=== PATIENT | female | born 1940 | race Caucasian/White ===

== ENCOUNTER 2017-09-15 20:41 | Emergency (ER) | payer MEDICARE ==
[2017-09-15 21:41] LABS: BASO % 0.2 % (0-6); EOS % 2.5 % (0-6); GRAN % 46.7 % (47-80); HEMATOCRIT 39.6 % (35.0-47.0); HEMOGLOBIN 12.9 gm/dl (11.6-16.0); LYMPH % 39.5 % (16-45); MEAN CELL VOLUME 91.7 fl (81-97); MEAN CORPUSCULAR HEMOGLOBIN 29.9 pg (27-33); MEAN CORPUSCULAR HGB CONC 32.6 g/dl (32-36); MEAN PLATELET VOLUME 9.4 fl (7.4-10.4); MONO % 11.1 % (0-9); PLATELET COUNT 207 K/uL (130-400); RED BLOOD COUNT 4.32 M/uL (3.80-5.40); RED CELL DISTRIBUTION WIDTH 13.3 % (11.5-14.5); WHITE BLOOD COUNT W/O DIFF 5.7 K/uL (4.2-12.2)
[2017-09-15 21:55] LABS: BILIRUBIN,TOTAL 0.2 mg/dL (0.2-1.0); CREATININE 1.4 mg/dL (0.5-0.9)
[2017-09-15 21:56] LABS: TOTAL PROTEIN 6.5 g/dL (6.6-8.7)
[2017-09-15 22:01] LABS: ALBUMIN 4.3 g/dL (4.0-5.0)
[2017-09-15] MEDS: ACETAMINOPHEN 500 MG TABLET PO ONE ×2 (22:37→22:59)
--- NOTE | 2017-09-15 23:16 | Emergency Department Record ---
History of Present Illness - General Chief Complaint: Hypertension Stated Complaint: HIGH BLOOD PRESSURE/HEADACHE Time Seen by Provider: 09/15/17 21:04 Source: Patient Mode of Arrival: Ambulatory Limitations: No limitations - History of Present Illness Initial Comments: pt came in because she has high blood pressure of 135 at home [which she says is high enough to cause her symptoms]] she also has a mild carney and tingling of both sides of her face. Complaint: Other Onset/Timin -: Days(s) Timing: Gradual onset Description: Other Improves With: Nothing Worsens With: Nothing Associated Symptoms: Other - Jesse Coma Scale Eye Response: (4) Open spontaneously Motor Response: (6) Obeys commands Verbal Response: (5) Oriented [place] Total: 15 - Related Data Home Medications Medication Instructions Recorded Confirmed Last Taken Amlodipine Besylate [Norvasc] 5 mg PO DAILY 09/15/17 09/15/17 Unknown Allergies Allergy/AdvReac Type Severity Reaction Status Date / Time Sulfa (Sulfonamide AdvReac HEADACHE Verified 09/15/17 20:50 Antibiotics) muscle relaxers AdvReac HEADACHE Uncoded 09/15/17 20:50 Travel Screening - Travel/Exposure Within Last 30 Days Have you traveled within the last 30 days?: No Review of Systems Reviewed: No additional complaints except as noted below Constitutional: Reports: As per HPI. Denies: Chills, Fever, Malaise, Night sweats, Weakness, Weight change Eyes: Reports: As per HPI. Denies: Eye discharge, Eye pain, Photophobia, Vision change ENT: Reports: As per HPI. Denies: Congestion, Dental pain, Ear pain, Epistaxis , Hearing loss, Throat pain Respiratory: Reports: As per HPI. Denies: Cough, Dyspnea, Hemoptysis, Stridor, Wheezes Cardiovascular: Reports: As per HPI. Denies: Arrhythmia, Chest pain, Dyspnea on exertion, Edema, Murmurs, Orthopnea, Palpitations, Paroxysmal nocturnal dyspnea, Rheumatic Fever, Syncope Endocrine: Reports: As per HPI. Denies: Fatigue, Heat or cold intolerance, Polydipsia, Polyuria Gastrointestinal: Reports: As per HPI. Denies: Abdominal pain, Constipation, Diarrhea, Hematemesis, Hematochezia, Melena, Nausea, Vomiting Genitourinary: Reports: As per HPI. Denies: Abnormal menses, Discharge, Dyspareunia, Dysuria, Frequency, Hematuria, Incontinence, Retention, Urgency Musculoskeletal: Reports: As per HPI. Denies: Arthralgia, Back pain, Gout, Joint swelling, Myalgia, Neck pain Skin: Reports: As per HPI. Denies: Bruising, Change in color, Change in hair/ nails, Lesions, Pruritus, Rash Neurological: Reports: As per HPI. Denies: Abnormal gait, Confusion, Headache, Numbness, Paresthesias, Seizure, Tingling, Tremors, Vertigo, Weakness Psychiatric: Reports: As per HPI. Denies: Anxiety, Auditory hallucinations, Depression, Homicidal thoughts, Suicidal thoughts, Visual hallucinations Hematological/Lymphatic: Reports: As per HPI. Denies: Anemia, Blood Clots, Easy bleeding, Easy bruising, Swollen glands Past Medical History - SOCIAL HISTORY Smoking Status: Never smoker Alcohol Use: None Drug Use: None - RESPIRATORY Hx Respiratory Disorders: No - CARDIOVASCULAR Hx Cardio Disorders: Yes Hx Chest Pain: Yes (hx of angina) Hx Hypertension: Yes - NEURO Hx Neuro Disorders: Yes Hx Headaches: Yes (hx of migraines) - GI Hx GI Disorders: No - Hx Genitourinary Disorders: No - ENDOCRINE Hx Endocrine Disorders: Yes Hx Thyroid Disease: Yes (hypothyroid) - MUSCULOSKELETAL Hx Musculoskeletal Disorders: No - PSYCH Hx Psych Problems: No - HEMATOLOGY/ONCOLOGY Hx Cancer: Yes (endometrial) Hx Chemotherapy: No Hx Radiation Therapy: No Family Medical History Any Significant Family History?: Yes Hx Heart Disease: Father, Mother, Grandparents Physical Exam - General General Appearance: Alert, Oriented x3, Cooperative, No acute distress - Head Head exam: Normal inspection - Eye Eye exam: Normal appearance, PERRL, EOMI Pupils: Normal accommodation - ENT ENT exam: Normal exam, Mucous membranes moist, Normal external ear exam, Normal orophraynx Ear exam: Normal external inspection. negative: External canal tenderness Nasal Exam: Normal inspection. negative: Discharge, Sinus tenderness Mouth exam: Normal external inspection, Tongue normal Teeth exam: Normal inspection. negative: Dental caries Throat exam: Normal inspection. negative: Tonsillar erythema, Tonsillar exudate - Neck Neck exam: Normal inspection, Full ROM. negative: Tenderness - Respiratory Respiratory exam: Normal lung sounds bilaterally. negative: Respiratory distress - Cardiovascular Cardiovascular Exam: Regular rate, Normal rhythm, Normal heart sounds - GI/Abdominal GI/Abdominal exam: Soft, Normal bowel sounds. negative: Tenderness - Rectal Rectal exam: Deferred - exam: Deferred - Extremities Extremities exam: Normal inspection, Full ROM, Normal capillary refill. negative: Tenderness - Back Back exam: Reports: Normal inspection, Full ROM. Denies: Muscle spasm, Rash noted, Tenderness - Neurological Neurological exam: Alert, CN II-XII intact, Normal gait, Oriented X3, Other ( subjective tingling of face) - Psychiatric Psychiatric exam: Normal affect, Normal mood - Skin Skin exam: Dry, Intact, Normal color, Warm Course Vital Signs 09/15/17 09/15/17 09/15/17 20:46 21:45 22:31 Temperature 97.4 F L 97.8 F Pulse Rate 83 Pulse Rate [ 79 75 Pulse Ox Probe] Respiratory 18 18 18 Rate Blood Pressure 179/86 Blood Pressure 136/69 125/67 [Left Arm] Pulse Ox 97 97 97 Medical Decision Making - Lab Data Result diagrams: 09/15/17 21:35 09/15/17 21:35 Lab Results 09/15/17 09/15/17 Range/Units 21:35 21:35 WBC 5.7 (4.2-12.2) K/uL RBC 4.32 (3.80-5.40) M/uL Hgb 12.9 (11.6-16.0) gm/dl Hct 39.6 (35.0-47.0) % MCV 91.7 (81-97) fl MCH 29.9 (27-33) pg MCHC 32.6 (32-36) g/dl RDW 13.3 (11.5-14.5) % Plt Count 207 (130-400) K/uL MPV 9.4 (7.4-10.4) fl Gran % 46.7 L (47-80) % Lymphocytes % 39.5 (16-45) % Monocytes % 11.1 H (0-9) % Eosinophils % 2.5 (0-6) % Basophils % 0.2 (0-6) % Sodium 141 (136-145) mmol/L Potassium 4.2 (3.4-4.5) mmol/L Chloride 104 (98-107) mmol/L Carbon Dioxide 25.0 (22-29) mmol/L Anion Gap 12.0 (7-16) BUN 26 H (8-23) mg/dL Creatinine 1.4 H (0.5-0.9) mg/dL Estimated GFR 39 mL/min Random Glucose 107 (74-109) mg/dL Calcium 9.3 (8.8-10.2) mg/dL Total Bilirubin 0.20 (0.2-1.0) mg/dL AST 17 (10.0-35.0) U/L ALT 28 (<33) U/L Alkaline Phosphatase 75 (35-104) U/L Total Protein 6.5 L (6.6-8.7) g/dL Albumin 4.3 (4.0-5.0) g/dL Globulin 2.2 (1.4-4.8) gm/dL Albumin/Globulin Ratio 2.0 H (1.1-1.8) Disposition Disposition: Discharge Clinical Impression: Renal insufficiency Hypertension Qualifiers: Hypertension type: essential hypertension Qualified Code(s): I10 - Essential ( primary) hypertension Disposition: Home, Self-Care Condition: (1) Good Instructions: Hypertension (ED) Additional Instructions: follow up with family doctor. return sooner if worse. push fluids. rest. have labs repeated in 2 wks Quality - Quality Measures Quality Measures: N/A - Blood Pressure Screening Does Patient Have Any of the Following: No Blood Pressure Classification: Pre-Hypertensive BP Reading Systolic Measurement: 179 Diastolic Measurement: 86 Screening for High Blood Pressure: < Pre-Hypertensive BP, F/U Documented > [ G8950] Pre-Hypertensive Follow-up Interventions: Follow-up with rescreen every year.
--- NOTE | 2017-09-16 00:02 | CT SCAN REPORT ---
EXAM: CT SCAN HEAD WO CONTRAST HISTORY: HIGH BLOOD PRESSURE, HEADACHE. TINGLING IN THE FACE. TECHNIQUE: Noncontrast head CT. COMPARISON: None. FINDINGS: The ventricles and subarachnoid spaces are unremarkable. There is no mass or mass effect. No intra or extraaxial hemorrhage. No CT evidence for large acute territorial infarct. No fracture or acute osseous abnormality. The visualized sinuses are clear. IMPRESSION: UNREMARKABLE HEAD CT WITH NO ACUTE INTRACRANIAL PROCESS IDENTIFIED. JOB NUMBER: [id number] MTDD
== END 2017-09-15 23:31 | disposition home or self-care (01) ==
LOC: ER 20:41
DX: I12.9 Hypertensive chronic kidney disease with stage 1 through stage 4 chronic kidney disease, or unspecified chronic kidney disease (principal); N18.9 Chronic kidney disease, unspecified; R51 Headache; R20.2 Paresthesia of skin
CPT/HCPCS: 70450; 80053; 85025; 99284

== ENCOUNTER 2018-09-07 13:50 | Emergency (ER) | payer MEDICARE ==
--- NOTE | 2018-09-07 14:34 | Emergency Department Record ---
History of Present Illness - General Chief Complaint: Hypertension Stated Complaint: BP HIGH/ FACE PAIN Time Seen by Provider: 09/07/18 14:27 Source: Patient, Family Mode of Arrival: Ambulatory Limitations: No limitations - History of Present Illness Initial Comments: 78 yo female presents with a concern about elevated blood pressure today. She noted at home it was higher than her normal. She had a vague tingling feeling of the face. No chest pain, weakness, vision changes, syncope, back or abdominal pain. She has a history of CAD with one stent. No recent angina equivalent symptoms. She took an extra dose of her home medication and now feels much improved. MD Complaint: Lightheadedness Onset/Timin -: Hour(s) Timing: Gradual onset History of Same: No History of Trauma: No Improves With: Nothing Worsens With: Nothing - Issue Coma Scale Eye Response: (4) Open spontaneously Motor Response: (6) Obeys commands Verbal Response: (5) Oriented [place] Total: 15 - Related Data Allergies Allergy/AdvReac Type Severity Reaction Status Date / Time cephalexin monohydrate Allergy Severe ITCHING Verified 09/07/18 14:15 [From Keflex] Sulfa (Sulfonamide AdvReac HEADACHE Verified 09/07/18 14:15 Antibiotics) muscle relaxers AdvReac HEADACHE Uncoded 09/15/17 20:50 Travel Screening - Travel/Exposure Within Last 30 Days Have you traveled within the last 30 days?: No - Travel/Exposure Within Last Year Have you traveled outside the [place] in the last year?: No - Additonal Travel Details Have you been exposed to anyone with a communicable illness?: No - Travel Symptoms Symptom Screening: None Review of Systems Constitutional: Denies: Chills, Fever, Malaise, Weakness Eyes: Denies: Eye discharge, Eye pain, Photophobia, Vision change ENT: Denies: Congestion, Throat pain Respiratory: Denies: Cough, Dyspnea, Hemoptysis, Stridor, Wheezes Cardiovascular: Denies: Chest pain, Dyspnea on exertion, Edema, Palpitations, Syncope Endocrine: Denies: Fatigue Gastrointestinal: Denies: Abdominal pain, Diarrhea, Nausea, Vomiting Genitourinary: Denies: Dysuria, Urgency Musculoskeletal: Denies: Arthralgia, Back pain, Joint swelling, Myalgia Skin: Denies: Bruising, Change in color, Rash Neurological: Reports: Tingling. Denies: Confusion, Headache, Numbness, Tremors , Vertigo, Weakness Psychiatric: Reports: Anxiety (admits to being frequently "anxious" about her BP readings) Hematological/Lymphatic: Denies: Anemia, Blood Clots, Easy bruising Past Medical History - SOCIAL HISTORY Smoking Status: Never smoker Alcohol Use: None Drug Use: None - RESPIRATORY Hx Respiratory Disorders: No - CARDIOVASCULAR Hx Cardio Disorders: Yes Hx Chest Pain: Yes (hx of angina) Hx Hypertension: Yes - NEURO Hx Neuro Disorders: Yes Hx Headaches: Yes (hx of migraines) - GI Hx GI Disorders: No - Hx Genitourinary Disorders: No - ENDOCRINE Hx Endocrine Disorders: Yes Hx Thyroid Disease: Yes (hypothyroid) - MUSCULOSKELETAL Hx Musculoskeletal Disorders: No - PSYCH Hx Psych Problems: No - HEMATOLOGY/ONCOLOGY Hx Cancer: Yes (endometrial) Hx Chemotherapy: No Hx Radiation Therapy: No Family Medical History Any Significant Family History?: Yes Hx Heart Disease: Father, Mother, Grandparents Physical Exam - General General Appearance: Alert, Oriented x3, Cooperative, No acute distress Limitations: No limitations - Head Head exam: Atraumatic, Normal inspection - Eye Eye exam: Normal appearance. negative: Conjunctival injection - ENT ENT exam: Normal exam, Mucous membranes moist Ear exam: Normal external inspection Nasal Exam: Normal inspection Mouth exam: Normal external inspection - Neck Neck exam: Normal inspection - Respiratory Respiratory exam: Normal lung sounds bilaterally. negative: Respiratory distress, Rhonchi, Stridor, Wheezes - Cardiovascular Cardiovascular Exam: Regular rate, Normal rhythm, Normal heart sounds. negative : Diastolic murmur, Systolic murmur, Tachycardia Peripheral Pulses: 2+: Radial (R), Radial (L) - GI/Abdominal GI/Abdominal exam: Soft. negative: Tenderness - Rectal Rectal exam: Deferred - exam: Deferred - Extremities Extremities exam: Normal inspection. negative: Pedal edema - Back Back exam: Denies: CVA tenderness (R), CVA tenderness (L) - Neurological Neurological exam: Alert, CN II-XII intact, Normal gait, Oriented X3. negative : Abnormal gait, Altered, Motor sensory deficit - Psychiatric Psychiatric exam: Normal affect, Normal mood - Skin Skin exam: Dry, Intact, Normal color, Warm Course Vital Signs 09/07/18 14:08 Temperature 97.9 F Pulse Rate 86 Respiratory 18 Rate Blood Pressure 144/82 Pulse Ox 99 - Reevaluation(s) Reevaluation #1: 09/07/18 15:26 The labs and UA were reviewed No acute changes I JANA Lugo. The patient will follow up with him in the next 1-2 weeks Medical Decision Making - Lab Data Result diagrams: 09/07/18 14:45 09/07/18 14:45 Disposition Disposition: Discharge Clinical Impression: Hypertension Qualifiers: Hypertension type: unspecified Qualified Code(s): I10 - Essential (primary) hypertension Disposition: Home, Self-Care Condition: (1) Good Instructions: Hypertension (ED) Additional Instructions: Call your doctor this week for close follow up in the next 1-2 weeks Return if you have any new symptoms or concerns Continue your current medications as prescribed Forms: Patient Portal Access Time of Disposition: 15:27 Quality - Quality Measures Quality Measures: N/A - Blood Pressure Screening Does Patient Have Any of the Following: No Blood Pressure Classification: Pre-Hypertensive BP Reading Systolic Measurement: 144 Diastolic Measurement: 82 Screening for High Blood Pressure: < Pre-Hypertensive BP, F/U Documented > [ G8950] Pre-Hypertensive Follow-up Interventions: Referral to alternative/primary care provider.
[2018-09-07] MEDS ORDERED: 0.9 % SODIUM CHLORIDE 1,000 ML BAG IV ONE (14:35)
[2018-09-07 14:50] LABS: BASO % 0.2 % (0-6); EOS % 0.9 % (0-6); GRAN % 61.4 % (47-80); HEMATOCRIT 42.4 % (35.0-47.0); HEMOGLOBIN 14.2 gm/dl (11.6-16.0); LYMPH % 28.2 % (16-45); MEAN CELL VOLUME 92.8 fl (81-97); MEAN CORPUSCULAR HEMOGLOBIN 31.1 pg (27-33); MEAN CORPUSCULAR HGB CONC 33.5 g/dl (32-36); MEAN PLATELET VOLUME 9.7 fl (7.4-10.4); MONO % 9.3 % (0-9); PLATELET COUNT 243 K/uL (130-400); RED BLOOD COUNT 4.57 M/uL (3.80-5.40); RED CELL DISTRIBUTION WIDTH 13.3 % (11.5-14.5); URINE APPEARANCE SL CLOUDY; URINE BILIRUBIN NEGATIVE (NEGATIVE); URINE BLOOD NEGATIVE (NEGATIVE); URINE COLOR YELLOW; URINE GLUCOSE (UA) NEGATIVE (NEGATIVE); URINE KETONE NEGATIVE (NEGATIVE); URINE LEUKOCYTE ESTERASE NEGATIVE (NEGATIVE); URINE NITRITE NEGATIVE (NEGATIVE); URINE PROTEIN NEGATIVE (NEGATIVE); URINE UROBILINOGEN 0.2 E.U./dL (0.20 - 1.00); WHITE BLOOD COUNT W/O DIFF 6.5 K/uL (4.2-12.2)
[2018-09-07 15:00] LABS: BLOOD UREA NITROGEN 21 mg/dL (8-23); CREATININE 0.8 mg/dL (0.5-0.9); EST GLOMERULAR FILTRATION RATE > 60 mL/min
[2018-09-07 15:03] LABS: GLUCOSE,RANDOM 93 mg/dL (74-109)
== END 2018-09-07 15:48 | disposition home or self-care (01) ==
LOC: ER 13:50
DX: I10 Essential (primary) hypertension (principal); I25.10 Atherosclerotic heart disease of native coronary artery without angina pectoris; Z95.5 Presence of coronary angioplasty implant and graft
CPT/HCPCS: 80048; 81003; 85025; 99284; J7030